=== PATIENT | male | born 1980 | race Caucasian/White ===

== ENCOUNTER 2021-08-29 11:28 | Inpatient (IN) | payer OTHER ==
[~2021-08-29] VITALS: Ht 180.3 cm; Wt 60.6 kg
[2021-08-29] MEDS ORDERED: cefTRIAXone IV Push 1 GM VIAL. IVP ONE (12:00)
--- NOTE | 2021-08-29 12:13 | PHYS DOC ---
Past Medical History Past Surgical History: No Surgical History Adult General Chief Complaint Chief Complaint: JAUNDICE HPI HPI The patient is a 40-year-old male with a longstanding history of daily alcohol abuse. Since his 20s he has been a daily drinker and he has consumed more than a pint a day for at least the last 10 years. About a week ago he decided that it was time to start cutting down on his drinking and reduced his consumption substantially. He reports that he did not suffer any substantial withdrawal symptoms but began to notice yellowing of his skin and distention of his abdomen. He reports never having had these symptoms before. With progressively worsening abdominal distention and jaundice he elected to be evaluated in the clinic for the first time since he was 12 years old today and was immediately referred to the emergency department for admission. Patient denies associated fevers, nausea or vomiting, hematemesis, hematochezia or melena, upper respiratory congestion/rhinorrhea, cough, sore throat, shortness of breath (although room air oxygen saturation is on the low side of normal), chest pain of any kind, abdominal pain of any kind, flank pain, midline back pain, dysuria, hematuria, polyuria or oliguria, changes in bowel habits. Vital signs are appropriate here and the patient is in no acute distress, ambulatory with a narrow, steady gait to his ED bed. Review of Systems Review of Systems A 12 point review of systems was completed and was negative except where noted in HPI above. Current Medications Current Medications Current Medications Medications (Trade) Dose Ordered Sig/Eveline Start Time Stop Time Status Last Admin Dose Admin Ceftriaxone Sodium (Rocephin) 1 gm 1X ONCE 08/29/21 12:00 08/29/21 12:04 DC 08/29/21 13:05 1 GM Multivit/ Folic Acid/Iron (Multivitamin ) 1 tab 1X ONCE 08/29/21 13:06 08/29/21 13:07 DC 08/29/21 13:11 1 TAB Thiamine HCl 500 mg/Dextrose 55 ml @ 102 mls/hr DAILY 08/29/21 13:00 08/29/21 13:10 102 MLS/HR Allergies Allergies Allergies Coded Allergies Type Severity Reaction Last Updated Verified No Known Drug Allergies 08/29/21 No Physical Exam Physical Exam Cachectic, chronically ill-appearing 40-year-old male appearing nontoxic and in no acute distress. Head is normocephalic and atraumatic. Neck is supple and nontender. Oropharynx is moist. There is bilateral scleral icterus. Lungs are clear to auscultation at all stations aside from mild diminishment at the bilateral bases. There is a normal S1 and S2 without rubs or gallops and capillary refill is appropriate, less than 2 seconds globally. Abdomen is distended with spider angiomata and other stigmata of chronic liver disease seen on the skin surface. There is a positive fluid wave. Distention is not tense but makes it difficult to appreciate any organomegaly underlying. Skin is warm and dry and without cyanosis, clubbing or edema. Patient is frankly jaundiced. Psychiatrically, the patient demonstrates appropriate mood and affect and is alert. Neurologically, no asterixis and no confusion; no lateralizing deficits seen and patient is alert and oriented x4. Current Patient Data Vital Signs Vital Signs Date Time Temp Pulse Resp B/P (MAP) Pulse Ox O2 Delivery O2 Flow Rate FiO2 08/29/21 12:52 118 119/83 (95) 96 Room Air 08/29/21 11:35 97.7 18 97.7 Lab Values Laboratory Tests Test 08/29/21 12:05 08/29/21 12:20 White Blood Count 17.6 x10^3/uL (4.0-11.0) H Red Blood Count 2.17 x10^6/uL (4.30-5.70) L Hemoglobin 8.4 g/dL (13.0-17.5) L Hematocrit 24.5 % (39.0-53.0) L Mean Corpuscular Volume 113 fL (79-100) H Mean Corpuscular Hemoglobin 39 pg (25-35) H Mean Corpuscular Hemoglobin Concent 34 g/dL (31-37) Red Cell Distribution Width 17.0 % (11.5-14.5) H Platelet Count 112 x10^3/uL (140-400) L Neutrophils (%) (Auto) 81 % (31-73) H Lymphocytes (%) (Auto) 11 % (24-48) L Monocytes (%) (Auto) 7 % (0-9) Eosinophils (%) (Auto) 1 % (0-3) Basophils (%) (Auto) 0 % (0-3) Neutrophils # (Auto) 14.2 x10^3/uL (1.8-7.7) H Lymphocytes # (Auto) 1.9 x10^3/uL (1.0-4.8) Monocytes # (Auto) 1.2 x10^3/uL (0.0-1.1) H Eosinophils # (Auto) 0.2 x10^3/uL (0.0-0.7) Basophils # (Auto) 0.1 x10^3/uL (0.0-0.2) Segmented Neutrophils % 80 % (35-66) H Band Neutrophils % 2 % (0-9) Lymphocytes % 10 % (24-48) L Monocytes % 5 % (0-10) Eosinophils % 1 % (0-5) Metamyelocytes % 2 % (0-0) H Toxic Granulation Slight Toxic Vacuolation Slight Platelet Estimate Decreased (ADEQUATE) Polychromasia Occasional Macrocytosis Present Target Cells Few Prothrombin Time 16.9 SEC (11.7-14.0) H Prothrombin Time INR 1.4 (0.8-1.1) H Activated Partial Thromboplast Time 45 SEC (24-38) H Sodium Level 123 mmol/L (136-145) L Potassium Level 3.7 mmol/L (3.5-5.1) Chloride Level 87 mmol/L (98-107) L Carbon Dioxide Level 21 mmol/L (21-32) Anion Gap 15 (6-14) H Blood Urea Nitrogen 24 mg/dL (8-26) Creatinine 2.0 mg/dL (0.7-1.3) H Estimated GFR (Cockcroft-Gault) 37.0 BUN/Creatinine Ratio 12 (6-20) Glucose Level 104 mg/dL (70-99) H Calcium Level 8.9 mg/dL (8.5-10.1) Total Bilirubin 11.8 mg/dL (0.2-1.0) H Direct Bilirubin 7.7 mg/dL (0.0-0.2) H Aspartate Amino Transferase (AST) 164 U/L (15-37) H Alanine Aminotransferase (ALT) 76 U/L (16-63) H Alkaline Phosphatase 115 U/L (46-116) Ammonia 28 mcmol/L (11-34) RP-Mwj-M-Type Natriuretic Peptide 312 pg/mL (0-124) H Total Protein 8.5 g/dL (6.4-8.2) H Albumin 2.0 g/dL (3.4-5.0) L Albumin/Globulin Ratio 0.3 (1.0-1.7) L Lipase 1082 U/L (73-393) H Acetaminophen Level < 2 mcg/ml (10-30) L Acetaminophen Last Dose Date Unknown Acetaminophen Last Dose Time Unknown Ethyl Alcohol Level < 10 mg/dL (0-10) Hepatitis A IgM Antibody Nonreactive (Nonreactive) Hepatitis B Surface Antigen Nonreactive (Nonreactive) Hepatitis B Core IgM Antibody Nonreactive (Nonreactive) Hepatitis C IgG Antibody Nonreactive (Nonreactive) SARS-CoV-2 Antigen (Rapid) Negative (NEGATIVE) Laboratory Tests 08/29/21 12:05 Laboratory Tests 08/29/21 12:05 EKG EKG [] Radiology/Procedures Radiology/Procedures [] Course & Med Decision Making Course & Med Decision Making 40-year-old gentleman with probable decompensated liver disease in the setting of probable alcoholic cirrhosis. Large work-up sent and dose of Rocephin given, after cultures were drawn, for SBP prophylaxis. Will be an admission. 1400: Work-up as above, with numerous derangements related to decompensated liver disease. Bringing in for further care to include GI consultation. Dr. Boyce graciously accepts. CC time 48 minutes. Dragon Disclaimer Dragon Disclaimer This electronic medical record was generated, in whole or in part, using a voice recognition dictation system. Departure Departure Impression: Primary Impression: Decompensated liver disease Additional Impressions: Alcohol abuse Renal insufficiency Disposition: ADMITTED INPATIENT Condition: GUARDED Referrals: VERÓNICA COUGHLIN MD (PCP) Problem Qualifiers TONYA WILSON MD Aug 29, 2021 12:13
[2021-08-29 12:22] LABS: BASO # 0.1 x10^3/uL (0.0-0.2); BASO % 0 % (0-3); EOS # 0.2 x10^3/uL (0.0-0.7); EOS % 1 % (0-3); HEMATOCRIT 24.5 % (39.0-53.0); HEMOGLOBIN 8.4 g/dL (13.0-17.5); LYMPH # 1.9 x10^3/uL (1.0-4.8); LYMPH % 11 % (24-48); MEAN CORPUSCULAR HEMOGLOBIN 39 pg (25-35); MEAN CORPUSCULAR HGB CONC 34 g/dL (31-37); MEAN CORPUSCULAR VOLUME 113 fL (79-100); MONO # 1.2 x10^3/uL (0.0-1.1); MONO % 7 % (0-9); NEUT # 14.2 x10^3/uL (1.8-7.7); NEUT % 81 % (31-73); PLATELET COUNT 112 x10^3/uL (140-400); RED BLOOD COUNT 2.17 x10^6/uL (4.30-5.70); WHITE BLOOD COUNT 17.6 x10^3/uL (4.0-11.0)
--- NOTE | 2021-08-29 12:26 | RAD ---
XR CHEST 1V Clinical Indication: Reason: diminished O2 saturation, decompensated liver dz Comparison: None. Findings: The cardiomediastinal silhouette is normal. There are right infrahilar and left basilar airspace opac ities. Lungs are otherwise clear. There is no pneumothorax. No pleural effusion is appreciated. No ac jena bone abnormality. IMPRESSION: Right infrahilar and left basilar airspace opacities are probably atelectasis. Electronically signed by: Keegan Brock MD (08/29/2021 12:23 PM) [id number]
[2021-08-29 12:32] LABS: PROTHROMBIN TIME PATIENT 16.9 SEC (11.7-14.0)
[2021-08-29 12:35] LABS: CALCIUM 8.9 mg/dL (8.5-10.1); POTASSIUM 3.7 mmol/L (3.5-5.1)
[2021-08-29 12:40] LABS: ACETAMIN < 2 mcg/ml (10-30); ETHANOL < 10 mg/dL (0-10)
[2021-08-29 12:41] LABS: ALBUMIN/GLOBULIN RATIO 0.3 (1.0-1.7); TOTAL BILIRUBIN 11.8 mg/dL (0.2-1.0); TOTAL PROTEIN 8.5 g/dL (6.4-8.2)
[2021-08-29 12:46] LABS: % BANDS 2 % (0-9); % EOS 1 % (0-5); % LYMPHS 10 % (24-48); % METAS 2 % (0-0); % MONOS 5 % (0-10); % SEGS 80 % (35-66)
[2021-08-29 12:47] LABS: PLT ESTIMATE DECREASED (ADEQUATE)
[2021-08-29 12:48] LABS: POLYCHROMASIA OCCASIONAL
[2021-08-29 12:49] LABS: TARGET CELLS FEW
[2021-08-29 12:50] LABS: TOXIC GRANULATION SLIGHT; TOXIC VACUOLATION SLIGHT
[2021-08-29] MEDS ORDERED: PRENATAL MULTIVITAMIN TABLET. PO ONE (13:06)
[2021-08-29] MEDS: THIAMINE INJ 500 MG in IV DEXTROSE 5% 50 ML IV SCH (13:10)
--- NOTE | 2021-08-29 13:10 | RAD ---
Examination: CT of the abdomen pelvis without contrast HISTORY: History of jaundice, ascites, elevated labs COMPARISON: None TECHNIQUE: Axial CT images of the abdomen pelvis without contrast. Coronal and sagittal reformats are performed Exposure: One or more of the following individualized dose reduction techniques were utilized for thi s examination: 1. Automated exposure control 2. Adjustment of the mA and/or kV according to patient size 3. Use of iterative reconstruction technique Findings: Focal linear airspace opacity right lower lobe of the lung likely pneumonia or atelectasis. No eviden ce of free air identified in the abdomen Mild nodular appearance of the liver likely cirrhotic changes. Prominent appearing paraumbilical vein The spleen, adrenals grossly appears unremarkable Gallbladder is mildly distended. The stomach is mildly distended. The visualized pancreas grossly appears unremarkable. The small ladonna l is nondilated. Feces and gas noted in the colon Mild thickened appearance of the wall of the colon.. Large ascites identified. The bilateral kidneys enhance symmetrically. Small 3 mm calculus left kidney No evidence of hydronephrosis Urinary bladder is mildly distended. Mild degenerative changes thoracolumbar spine. IMPRESSION: 1. Mild nodular appearance of the liver likely cirrhotic changes. Prominent appearing paraumbilical vein could be due to portal hypertension. 2. Large ascites. 3. Mild thickened appearance of the wall of the colon could be due to nondistention or mild colitis. 4. 3 mm calculus left kidney. 5. Focal linear airspace opacity right lower lobe of the lung likely pneumonia or atelectasis. Follo w-up to resolution. Electronically signed by: Jose Santiago MD (08/29/2021 1:07 PM) [id number]
--- NOTE | 2021-08-29 14:39 | RAD ---
US ABDOMEN LIMITED History: Reason: LFT derangements, pancreatitis / Spl. Instructions: / History: Comparison: CT August 29, 2021. Technique: Transabdominal ultrasound images are obtained of the right upper quadrant. Findings: Liver is heterogeneous nodular in echogenicity. Right hepatic lobe measures 15.3 cm. Portal flow is hepatopedal. Large upper abdominal ascites. Diffuse gallbladder sludge. No gallbladder wall thickening. Common bile duct not identified due to overlying structures. Visualized pancreas unremarkable. The right kidney measures 10.6 x 5.5 x 4.8 cm. No hydronephrosis. Aorta and IVC not well seen due to overlying structures. IMPRESSION: 1. Gallbladder sludge. 2. Hepatic cirrhosis with large abdominal ascites. Electronically signed by: Amari Puckett DO (08/29/2021 2:36 PM) [id number]
[2021-08-29 15:45] VITALS: BP 126/84
[2021-08-29] MEDS ORDERED: ONDANSETRON PF 4 MG/2 ML VIAL. IVP PRN (16:45)
[2021-08-29] MEDS ORDERED: IBUP-1027 PO (17:26)
[2021-08-29] MEDS ORDERED: diphenhydrAMINE 50 MG/ML VIAL IVP PRN (18:00)
[2021-08-29] MEDS ORDERED: cloNIDine HCL 0.1 MG TABLET PO PRN (18:00)
[2021-08-29] MEDS ORDERED: HALOPERIDOL LACTATE 5 MG/ML VIAL. IVP PRN (18:00)
[2021-08-29] MEDS: IV NORMAL SALINE 1000ML BAG 1,000 ML IV SCH (18:21)
[2021-08-29 19:54] VITALS: BP 117/78
[2021-08-29 23:45] VITALS: BP 117/76
[2021-08-30] VITALS (16 sets, daily range): BP systolic 104–132; BP diastolic 64–87
[2021-08-30 08:20] LABS: BASO % 0 % (0-3); EOS # 0.3 x10^3/uL (0.0-0.7); EOS % 2 % (0-3); LYMPH # 2.4 x10^3/uL (1.0-4.8); LYMPH % 17 % (24-48); MEAN CORPUSCULAR HEMOGLOBIN 39 pg (25-35); MEAN CORPUSCULAR HGB CONC 35 g/dL (31-37); MEAN CORPUSCULAR VOLUME 113 fL (79-100); MONO # 1.1 x10^3/uL (0.0-1.1); MONO % 8 % (0-9); NEUT # 10.1 x10^3/uL (1.8-7.7); NEUT % 73 % (31-73); PLATELET COUNT 86 x10^3/uL (140-400); RED BLOOD COUNT 1.63 x10^6/uL (4.30-5.70); RED CELL DISTRIBUTION WIDTH 17.4 % (11.5-14.5)
[2021-08-30 08:25] LABS: HEMATOCRIT 18.4 % (39.0-53.0); HEMOGLOBIN 6.4 g/dL (13.0-17.5)
[2021-08-30 08:38] LABS: ALBUMIN 1.5 g/dL (3.4-5.0); ALBUMIN/GLOBULIN RATIO 0.3 (1.0-1.7); CALCIUM 8.2 mg/dL (8.5-10.1); CREATININE 1.7 mg/dL (0.7-1.3); GFR 44.6; TOTAL BILIRUBIN 8.5 mg/dL (0.2-1.0); TOTAL PROTEIN 6.8 g/dL (6.4-8.2)
[2021-08-30 08:45] LABS: POTASSIUM 3.5 mmol/L (3.5-5.1)
--- NOTE | 2021-08-30 09:02 | PDOC ---
Provider Note Date of Service: DATE: 08/30/21 TIME: 09:02 Provider Note dictated Justifications for Admission Other Justification KIP HAQUE MD Aug 30, 2021 09:02
[2021-08-30] MEDS: THIAMINE INJ 500 MG in IV DEXTROSE 5% 50 ML IV SCH (09:24)
--- NOTE | 2021-08-30 10:05 | PDOC2 ---
GI CONSULT Date of Service: DATE: 08/30/21 TIME: 10:05 Reason For Consult: decompensated liver disease HPI: HPI: 40 y/o male admitted through ER. H/o heavy alcohol use, last drink Thursday08/26/21. Gives somewhat wandering history - indicates issues w/ n/v after drinking so cut back, had some auditory and visual hallucination, then developed yellowing of skin and eyes and abdominal distention. At one point during retc rasheed heard a "pop" - thinks broke a rib but feels it has healed. Denies reflux/heartburn, dysphagia, hematemesis, hematochezia, melena, diarrhea, and constipation. Has lost weight and has some abdominal discomfort. No previous EGD or colonoscopy. No GB, liver, pancreas, or PUD history. Takes ibuprofen PRN. 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 Just got health insurance and established care w/ new PCP. PMH: PMH: rib fractures FH: Family History: No pertinent hx (denies liver disease, GI cancers) Social History: Smoke: <1 pack per day ALCOHOL: heavy Drugs: Marijuana ROS: GEN: Denies fevers, chills, sweats HEENT: Denies blurred vision, sore throat CV: Denies chest pain RESP: Denies shortness of air, cough GI: Per HPI : Denies hematuria, dysuria ENDO: +wt loss NEURO: +hallucination (not now) MSK: +weakness SKIN: +jaundice Vitals: Vitals: Vital Signs Date Time Temp Pulse Resp B/P (MAP) Pulse Ox O2 Delivery O2 Flow Rate FiO2 08/30/21 08:00 Room Air 08/30/21 07:00 97.8 116 16 119/77 (91) 90 97.8 Labs: Labs: Laboratory Tests Test 08/29/21 12:05 08/29/21 12:20 08/30/21 07:25 08/30/21 07:35 White Blood Count 17.6 x10^3/uL (4.0-11.0) 14.0 x10^3/uL (4.0-11.0) Red Blood Count 2.17 x10^6/uL (4.30-5.70) 1.63 x10^6/uL (4.30-5.70) Hemoglobin 8.4 g/dL (13.0-17.5) 6.4 g/dL (13.0-17.5) Hematocrit 24.5 % (39.0-53.0) 18.4 % (39.0-53.0) Mean Corpuscular Volume 113 fL (79-100) 113 fL (79-100) Mean Corpuscular Hemoglobin 39 pg (25-35) 39 pg (25-35) Mean Corpuscular Hemoglobin Concent 34 g/dL (31-37) 35 g/dL (31-37) Red Cell Distribution Width 17.0 % (11.5-14.5) 17.4 % (11.5-14.5) Platelet Count 112 x10^3/uL (140-400) 86 x10^3/uL (140-400) Neutrophils (%) (Auto) 81 % (31-73) 73 % (31-73) Lymphocytes (%) (Auto) 11 % (24-48) 17 % (24-48) Monocytes (%) (Auto) 7 % (0-9) 8 % (0-9) Eosinophils (%) (Auto) 1 % (0-3) 2 % (0-3) Basophils (%) (Auto) 0 % (0-3) 0 % (0-3) Neutrophils # (Auto) 14.2 x10^3/uL (1.8-7.7) 10.1 x10^3/uL (1.8-7.7) Lymphocytes # (Auto) 1.9 x10^3/uL (1.0-4.8) 2.4 x10^3/uL (1.0-4.8) Monocytes # (Auto) 1.2 x10^3/uL (0.0-1.1) 1.1 x10^3/uL (0.0-1.1) Eosinophils # (Auto) 0.2 x10^3/uL (0.0-0.7) 0.3 x10^3/uL (0.0-0.7) Basophils # (Auto) 0.1 x10^3/uL (0.0-0.2) 0.0 x10^3/uL (0.0-0.2) Segmented Neutrophils % 80 % (35-66) Band Neutrophils % 2 % (0-9) Lymphocytes % 10 % (24-48) Monocytes % 5 % (0-10) Eosinophils % 1 % (0-5) Metamyelocytes % 2 % (0-0) Toxic Granulation Slight Toxic Vacuolation Slight Platelet Estimate Decreased (ADEQUATE) Polychromasia Occasional Macrocytosis Present Target Cells Few Prothrombin Time 16.9 SEC (11.7-14.0) Prothromb Time International Ratio 1.4 (0.8-1.1) Activated Partial Thromboplast Time 45 SEC (24-38) Sodium Level 123 mmol/L (136-145) 126 mmol/L (136-145) Potassium Level 3.7 mmol/L (3.5-5.1) 3.5 mmol/L (3.5-5.1) Chloride Level 87 mmol/L (98-107) 93 mmol/L (98-107) Carbon Dioxide Level 21 mmol/L (21-32) 24 mmol/L (21-32) Anion Gap 15 (6-14) 9 (6-14) Blood Urea Nitrogen 24 mg/dL (8-26) 24 mg/dL (8-26) Creatinine 2.0 mg/dL (0.7-1.3) 1.7 mg/dL (0.7-1.3) Estimated GFR (Cockcroft-Gault) 37.0 44.6 BUN/Creatinine Ratio 12 (6-20) 14 (6-20) Glucose Level 104 mg/dL (70-99) 70 mg/dL (70-99) Calcium Level 8.9 mg/dL (8.5-10.1) 8.2 mg/dL (8.5-10.1) Total Bilirubin 11.8 mg/dL (0.2-1.0) 8.5 mg/dL (0.2-1.0) Direct Bilirubin 7.7 mg/dL (0.0-0.2) Aspartate Amino Transf (AST/SGOT) 164 U/L (15-37) 130 U/L (15-37) Alanine Aminotransferase (ALT/SGPT) 76 U/L (16-63) 54 U/L (16-63) Alkaline Phosphatase 115 U/L (46-116) 86 U/L (46-116) Ammonia 28 mcmol/L (11-34) OQ-Gjj-B-Type Natriuretic Peptide 312 pg/mL (0-124) Total Protein 8.5 g/dL (6.4-8.2) 6.8 g/dL (6.4-8.2) Albumin 2.0 g/dL (3.4-5.0) 1.5 g/dL (3.4-5.0) Albumin/Globulin Ratio 0.3 (1.0-1.7) 0.3 (1.0-1.7) Lipase 1082 U/L (73-393) Acetaminophen Level < 2 mcg/ml (10-30) Acetaminophen Last Dose Date Unknown Acetaminophen Last Dose Time Unknown Ethyl Alcohol Level < 10 mg/dL (0-10) Hepatitis A IgM Antibody Nonreactive (Nonreactive) Hepatitis B Surface Antigen Nonreactive (Nonreactive) Hepatitis B Core IgM Antibody Nonreactive (Nonreactive) Hepatitis C IgG Antibody Nonreactive (Nonreactive) SARS-CoV-2 RNA (NELIDA) Negative (Negative) SARS-CoV-2 Antigen (Rapid) Negative (NEGATIVE) Allergies: Coded Allergies: No Known Drug Allergies (Unverified , 08/29/21) Medications: Current Medications Medications (Trade) Dose Ordered Sig/Eveline Route PRN Reason Start Time Stop Time Status Last Admin Dose Admin Ceftriaxone Sodium (Rocephin) 1 gm 1X ONCE IVP 08/29/21 12:00 08/29/21 12:04 DC 08/29/21 13:05 Thiamine HCl 500 mg/Dextrose 55 ml @ 102 mls/hr DAILY IV 08/29/21 13:00 08/30/21 09:24 Multivit/ Folic Acid/Iron (Multivitamin ) 1 tab 1X ONCE PO 08/29/21 13:06 08/29/21 13:07 DC 08/29/21 13:11 Sodium Chloride 1,000 ml @ 50 mls/hr Q20H IV 08/29/21 18:00 08/29/21 18:21 Imaging: Imaging: CT A/P Findings: Focal linear airspace opacity right lower lobe of the lung likely pneumonia or atelectasis. No evidence of free air identified in the abdomen Mild nodular appearance of the liver likely cirrhotic changes. Prominent appearing paraumbilical veinThe spleen, adrenals grossly appears unremarkable Gallbladder is mildly distended. The stomach is mildly distended. The visualized pancreas grossly appears unremarkable. The small bowel is nondilated. Feces and gas noted in the colon Mild thickened appearance of the wall of the colon.. Large ascites identified. The bilateral kidneys enhance symmetrically. Small 3 mm calculus left kidney No evidence of hydronephrosis Urinary bladder is mildly distended. Mild degenerative changes thoracolumbar spine. IMPRESSION: 1. Mild nodular appearance of the liver likely cirrhotic changes. Prominent appearing paraumbilical vein could be due to portal hypertension. 2. Large ascites. 3. Mild thickened appearance of the wall of the colon could be due to nondistention or mild colitis. 4. 3 mm calculus left kidney. 5. Focal linear airspace opacity right lower lobe of the lung likely pneumonia or atelectasis. Follow-up to resolution. CXR IMPRESSION: Right infrahilar and left basilar airspace opacities are probably atelectasis. RUQ US Findings: Liver is heterogeneous nodular in echogenicity. Right hepatic lobe measures 15.3 cm. Portal flow is hepatopedal. Large upper abdominal ascites. Diffuse gallbladder sludge. No gallbladder wall thickening. Common bile duct not identified due to overlying structures. Visualized pancreas unremarkable. The right kidney measures 10.6 x 5.5 x 4.8 cm. No hydronephrosis. Aorta and IVC not well seen due to overlying structures. IMPRESSION: 1. Gallbladder sludge. 2. Hepatic cirrhosis with large abdominal ascites. ADDENDUM #1 Addendum: Correction: Flow within the portal vein is reversed. No occlusion. PE: GEN: appears older than stated age HEENT: Atraumatic, +sclearae icteric, poor dentition LUNGS: CTAB anteriorly HEART: tachycardic ABD: distended, soft, non-tender EXTREMITY: No edema SKIN: +jaundice +tattoo left shoulder NEURO/PSYCH: A & O 3 - fuzzy on some details, odd affect A/P: A/P: Jaundice, ascites Leukocytosis, macroctyic anemia, thrombocytopenia, mild coagulopathy, hyponatremia, RADHA, hyperbilirubinemia and elevated AST, elevated lipase Recent n/v, hallucinations, weight loss CRC screen - average risk -- Suspect alcoholic hepatitis/cirrhosis. Viral Hep panel negative. Transfusion and B12 ordered, add iron for completeness. Will ask for paracentesis and fluid studies. Okay to try clears, ADAT. Start acid-medical device assembler. Withdrawal precautions per primary. Discussed quitting alcohol completely w/ pt. GHAZAL MCWILLIAMS Aug 30, 2021 10:05
--- NOTE | 2021-08-30 10:52 | NUR ---
SW following. Discussed with RN, pt from home, room air, cardiac diet, COVID-19 negative. Pt jaundice and in liver failure per RN. GI following. RN advised no SW needs at this time. SW will continue to follow.
[2021-08-30] MEDS: PANTOPRAZOLE 40 MG TABLET.DR. PO SCH (11:21)
--- NOTE | 2021-08-30 12:10 | HP ---
DATE OF SERVICE: 08/30/2021 ADMIT DATE: 08/29/2021 CHIEF COMPLAINT: . HISTORY OF PRESENT ILLNESS: The patient has been seen by Dr. Sweet with severe jaundice, weakness, abdominal distention and general fatigue. He has a long history of alcohol abuse and has been seen by a doctor who admitted for anemia as well as above-mentioned factors. He was found to be hyponatremic in the ER as well. PAST HISTORY: No meds, no allergies, no medical history. SOCIAL HISTORY: He has cut down on alcohol and is unable to quantitate that, does not know if he smokes or not. He is employed. He is single. REVIEW OF SYSTEMS: Unremarkable. OBJECTIVE: ENT: Very poor dentition. He has got pale sclera ____ icteric. NECK: No masses, nodes or bruits. JVD present. CV: Regular rate, tachycardia and no murmur. ABDOMEN: Distended with fluid wave consistent with ascites. EXTREMITIES: Poor muscle mass. No joint or skin lesions. There is mild edema of the ankles and very poor muscle mass. NEUROLOGIC: Mild tremors, otherwise unremarkable. One to two beats of asterixis is noted. 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 There is jaundice. This is likely secondary to chronic alcohol abuse. He also appears to be anemic perhaps from multifactorial reasons ____ as well. Hyponatremia is present as well. PLAN: IV saline, likely will need paracentesis for diagnostic reasons and comfort. We will transfuse 1 unit of packed cells. Silent care and alcohol withdrawal too. KEYUR/MATT/MARCIO STAHL: Caro TID: [id number]
[2021-08-30] MEDS ORDERED: ALBUMIN HUMAN 25% 100 ML IV ONE ×3 (13:06→13:15)
[2021-08-30 13:29] LABS: BF CLARITY CLEAR; BF COLOR YELLOW; BF SOURCE ASCITES
[2021-08-30 13:30] LABS: BF MON % 76 %; BF PMN % 24 %; BF RBC COUNT 56 /cmm (Not Established); BF WBC COUNT 59 /cmm (Not Established)
--- NOTE | 2021-08-30 15:08 | RAD ---
Ultrasound-guided paracentesis. 08/30/2021 3:05 PM Indication: Reason: new ascites - diagnostic and therapeutic Discussion: The risks and benefits of the procedure including but not limited to bleeding, hypotensio n, and infection were discussed the patient. Informed consent was obtained. Ultrasound evaluation was performed demonstrating ascites, with the largest pocket and the right lower quadrant. The right low er quadrant was prepped and draped in sterile fashion. 1% lidocaine without epinephrine was administe red for local anesthesia. Under direct ultrasound guidance a 5 Vietnamese Yueh needle was advanced into t he peritoneal space. Serous fluid was aspirated. The catheter was connected to suction and approximat lester 7 liters of fluid was removed. The catheter was then removed and manual pressure was held to ach ieve hemostasis. A sterile dressing was applied. Impression: Ultrasound-guided paracentesis with removal of 7 L of ascites Electronically signed by: Landry Mackenzie MD (08/30/2021 3:05 PM) [id number]
[2021-08-31] MEDS: IV NORMAL SALINE 1000ML BAG 1,000 ML IV SCH ×2 (00:12→13:36)
[2021-08-31 03:00] VITALS: BP 110/70
[2021-08-31 07:00] VITALS: BP 107/67
[2021-08-31 08:04] LABS: HEMATOCRIT 21.8 % (39.0-53.0); HEMOGLOBIN 7.6 g/dL (13.0-17.5); RED BLOOD COUNT 2.03 x10^6/uL (4.30-5.70); RED CELL DISTRIBUTION WIDTH 21.9 % (11.5-14.5); WHITE BLOOD COUNT 9.4 x10^3/uL (4.0-11.0)
[2021-08-31 08:17] LABS: CALCIUM 7.9 mg/dL (8.5-10.1); CREATININE 1.4 mg/dL (0.7-1.3); GFR 55.8; POTASSIUM 3.2 mmol/L (3.5-5.1)
[2021-08-31 08:48] LABS: DIRECT BILIRUBIN 5.2 mg/dL (0.0-0.2); TOTAL BILIRUBIN 9.2 mg/dL (0.2-1.0); TOTAL PROTEIN 6.3 g/dL (6.4-8.2)
--- NOTE | 2021-08-31 10:13 | PDOC ---
Provider Note Date of Service: DATE: 08/31/21 TIME: 10:11 Provider Note feels better after para, bili same, sono no obstruction dseen- hb > 7, will follow B12 ok so high mcv is etoh tox- Na+ still low continue iv saline slowly re ascites, rest same Justifications for Admission Other Justification KIP HAQUE MD Aug 31, 2021 10:13
[2021-08-31] MEDS: THIAMINE 100 MG TABLET. PO SCH (10:23)
[2021-08-31] MEDS: PANTOPRAZOLE 40 MG TABLET.DR. PO SCH (10:23)
[2021-08-31 11:00] VITALS: BP 152/85
[2021-08-31] MEDS: POTASSIUM CHLORIDE 10 MEQ TABLET.ER. PO SCH ×2 (13:35→17:13)
[2021-08-31 15:00] VITALS: BP 115/78
[2021-08-31] MEDS: MULTIVITAMIN with MINERAL TABLET. PO SCH (17:13)
[2021-08-31 19:00] VITALS: BP 116/68
[2021-08-31 23:18] VITALS: BP 112/63
[2021-09-01 03:21] VITALS: BP 118/70
[2021-09-01 07:00] VITALS: BP 112/75
[2021-09-01 07:47] LABS: CALCIUM 7.4 mg/dL (8.5-10.1); CREATININE 1.5 mg/dL (0.7-1.3); GFR 51.6; POTASSIUM 3.6 mmol/L (3.5-5.1)
[2021-09-01 08:09] LABS: HEMATOCRIT 22.5 % (39.0-53.0); HEMOGLOBIN 7.9 g/dL (13.0-17.5); RED BLOOD COUNT 2.08 x10^6/uL (4.30-5.70); RED CELL DISTRIBUTION WIDTH 22.3 % (11.5-14.5); WHITE BLOOD COUNT 10.6 x10^3/uL (4.0-11.0)
[2021-09-01] MEDS: POTASSIUM CHLORIDE 10 MEQ TABLET.ER. PO SCH ×3 (10:00→17:26)
[2021-09-01] MEDS: THIAMINE 100 MG TABLET. PO SCH (10:00)
[2021-09-01] MEDS: PANTOPRAZOLE 40 MG TABLET.DR. PO SCH (10:01)
[2021-09-01] MEDS: MULTIVITAMIN with MINERAL TABLET. PO SCH (10:01)
[2021-09-01] MEDS: IV NORMAL SALINE 1000ML BAG 1,000 ML IV SCH (10:08)
--- NOTE | 2021-09-01 10:40 | PDOC ---
Provider Note Date of Service: DATE: 09/01/21 TIME: 10:38 Provider Note vss, no more pain re diet advance- hb same as are platelts- Na+ 132 now, will dc iv saline and assesss 09/02 Justifications for Admission Other Justification KIP HAQUE MD Sep 01, 2021 10:39
[2021-09-01 11:00] VITALS: BP 122/84
[2021-09-01 15:00] VITALS: BP 113/67
[2021-09-01 19:00] VITALS: BP 122/73
[2021-09-01 23:00] VITALS: BP 119/79
[2021-09-02 03:00] VITALS: BP 110/75
[2021-09-02 07:00] VITALS: BP 121/77
[2021-09-02] MEDS: THIAMINE 100 MG TABLET. PO SCH (08:02)
[2021-09-02] MEDS: PANTOPRAZOLE 40 MG TABLET.DR. PO SCH (08:02)
[2021-09-02] MEDS: POTASSIUM CHLORIDE 10 MEQ TABLET.ER. PO SCH ×3 (08:02→17:30)
[2021-09-02 08:21] LABS: CALCIUM 7.8 mg/dL (8.5-10.1); CREATININE 1.3 mg/dL (0.7-1.3); GFR 60.8; POTASSIUM 3.4 mmol/L (3.5-5.1)
--- NOTE | 2021-09-02 08:29 | PDOC ---
Provider Note Date of Service: DATE: 09/02/21 TIME: 08:28 Provider Note status same, Na= down to 126 off iv so resume iv saline- follow same, rest of meds same Justifications for Admission Other Justification KIP HAQUE MD Sep 02, 2021 08:29
--- NOTE | 2021-09-02 10:04 | PDOC ---
Date of Service: DATE: 09/02/21 TIME: 09:54 Subjective: Subjective: Feels much better after paracentesis, might have a little recurrence of ascites but is comfortable. Tolerating diet. Significant other present and would like to know what degree of liver failure he has. Objective: Objective: B12 normal, iron sat not performed. Vital Signs: Vital Signs Date Time Temp Pulse Resp B/P (MAP) Pulse Ox O2 Delivery O2 Flow Rate FiO2 09/02/21 07:00 98.2 106 16 121/77 (92) 92 Room Air 98.2 Labs: Laboratory Tests Test 09/02/21 06:00 Sodium Level 126 mmol/L Potassium Level 3.4 mmol/L Chloride Level 97 mmol/L Carbon Dioxide Level 20 mmol/L Anion Gap 9 Blood Urea Nitrogen 14 mg/dL Creatinine 1.3 mg/dL Estimated GFR (Cockcroft-Gault) 60.8 Glucose Level 109 mg/dL Calcium Level 7.8 mg/dL ORDERED: ROSIE/AEROBIC CUL COMMENTS: Specimen Description: ascites GRAM STAIN-AER ROSIE Final PMNS (WBCS): NONE SEEN SQUAMOUS EPI CELL: NOT APPLICABLE NO ORGANISMS SEEN NO ORGANISMS SEEN CULTURE ANAEROBIC/AEROBIC Preliminary NO GROWTH ON 08/31/21 at 1128 NO GROWTH ON 09/01/21 at 1048 BLOOD CULTURE Preliminary NO GROWTH AFTER 3 DAYS Imagin08/30/21 Impression: Ultrasound-guided paracentesis with removal of 7 L of ascites PE: GEN: NAD - breakfast tray 100% consumed LUNGS: CTAB HEART: mildly tachycardic ABD: soft, probably some ascites but improved EXTREMITY: No edema SKIN: jaundice improved NEURO/PSYCH: A & O 3 A/P: Alcoholic cirrhosis - jaundice improved, s/p paracentesis 7L (fluid negative) Macrocytic anemia (normal B12), thrombocytopenia RADHA (resolved), hyponatremia - per primary Elevated lipase - better, unremarkable pancreas on imaging, GB sludge on US, no abd pain COVID negative -- D/w supportive fiance - assisted continue abstinence and follow-up w/ transplant center. Continue support, salt-restriction, paracentesis PRN. Justicifation of Admission Dx: Justifications for Admission: Justification of Admission Dx: Yes GHAZAL MCWILLIAMS Sep 02, 2021 10:04
--- NOTE | 2021-09-02 10:42 | NUR ---
SW following. Chart reviewed, pt from home, room air, cardiac diet, COVID-19 negative. GI following. No SW needs at this time, anticipate discharge in the next 24 hours or so. SW will continue to follow.
[2021-09-02 10:59] VITALS: BP 127/81
[2021-09-02] MEDS: MULTIVITAMIN with MINERAL TABLET. PO SCH (12:09)
[2021-09-02] MEDS: IV DEXTROSE 5% - 0.9 % NACL 1,000 ML IV SCH (13:15)
[2021-09-02 15:00] VITALS: BP 119/75
--- NOTE | 2021-09-02 17:07 | PATHOLOGY ---
Note [facility] Accession Number: [id number] TESTS RESULT FLAG UNITS REF RANGE LAB Clinician Provided Cytology Information No. of containers..01 Other (Miscellaneous) Source: 01 ASCITES DIAGNOSIS: 02 ASCITES NEGATIVE FOR MALIGNANT CELLS. MESOTHELIAL CELLS ARE PRESENT. THIS EVALUATION INCLUDES EXAMINATION OF A CELL A BLOCK. Signed out by: 02 Von Heredia MD, Pathologist NPI- [id number] Performed by: Pari Reza Sound Assistant ([facility]) Gross description: 01 30ML, YELLOW, HAZY /LCS 08/31/2021 0024 Local FLAG LEGEND: L-Low Normal,H-High Normal,LL-Alert Low,HH-Alert High <-Panic Low,>-Panic High,A-Abnormal,AA-Critical Abnormal Performed at: [address] [place] [address] Erlin Gonzales MD, 02 [facility] [address] [place] [address] Von Heredia MD, Specimen Comment: A courtesy copy of this report has been sent to [phone], [phone] Specimen Comment: [id number] Specimen Comment: Report sent to / DR PASTOR Specimen Comment: A duplicate report has been generated due to demographic updates. Performed at: [address] [place] [address] [facility] [address], [place], [place] [id number] MD Erlin Gonzales MD Phone: [phone]
[2021-09-02 19:00] VITALS: BP 126/73
[2021-09-02 23:05] VITALS: BP 133/89
[2021-09-03] VITALS (8 sets, daily range): BP systolic 102–132; BP diastolic 70–84
[2021-09-03 07:55] LABS: HEMATOCRIT 22.2 % (39.0-53.0); HEMOGLOBIN 7.8 g/dL (13.0-17.5); RED BLOOD COUNT 2.02 x10^6/uL (4.30-5.70); RED CELL DISTRIBUTION WIDTH 22.7 % (11.5-14.5); WHITE BLOOD COUNT 10.6 x10^3/uL (4.0-11.0)
[2021-09-03 08:13] LABS: CALCIUM 7.6 mg/dL (8.5-10.1); CREATININE 1.4 mg/dL (0.7-1.3); GFR 55.8; POTASSIUM 3.9 mmol/L (3.5-5.1)
--- NOTE | 2021-09-03 08:34 | PDOC ---
Provider Note Date of Service: DATE: 09/03/21 TIME: 08:32 Provider Note status same, hb stable, Na+ 127- will add low dose spirono now, cont iv saline another day, dc tomorrow if lab stable Justifications for Admission Other Justification KIP HAQUE MD Sep 03, 2021 08:34
[2021-09-03] MEDS: MULTIVITAMIN with MINERAL TABLET. PO SCH (08:59)
[2021-09-03] MEDS: POTASSIUM CHLORIDE 10 MEQ TABLET.ER. PO SCH ×3 (08:59→17:36)
[2021-09-03] MEDS: PANTOPRAZOLE 40 MG TABLET.DR. PO SCH (09:00)
[2021-09-03] MEDS: SPIRONOLACTONE 25 MG TABLET PO SCH (09:04)
[2021-09-03] MEDS: IV DEXTROSE 5% - 0.9 % NACL 1,000 ML IV SCH (09:06)
--- NOTE | 2021-09-03 09:53 | PDOC ---
Date of Service: DATE: 09/03/21 TIME: 09:48 Subjective: Subjective: Nurse present - pt feels abdomen more distended/ascites recurring, would like to consider repeating paracentesis. Hasn't had the change to eat breakfast yet. Objective: Vital Signs: Vital Signs Date Time Temp Pulse Resp B/P (MAP) Pulse Ox O2 Delivery O2 Flow Rate FiO2 09/03/21 07:40 Room Air 09/03/21 07:00 98.2 113 14 123/81 (95) 94 98.2 Labs: Laboratory Tests Test 09/03/21 07:25 White Blood Count 10.6 x10^3/uL Red Blood Count 2.02 x10^6/uL Hemoglobin 7.8 g/dL Hematocrit 22.2 % Mean Corpuscular Volume 110 fL Mean Corpuscular Hemoglobin 38 pg Mean Corpuscular Hemoglobin Concent 35 g/dL Red Cell Distribution Width 22.7 % Platelet Count 85 x10^3/uL Sodium Level 127 mmol/L Potassium Level 3.9 mmol/L Chloride Level 99 mmol/L Carbon Dioxide Level 20 mmol/L Anion Gap 8 Blood Urea Nitrogen 11 mg/dL Creatinine 1.4 mg/dL Estimated GFR (Cockcroft-Gault) 55.8 Glucose Level 127 mg/dL Calcium Level 7.6 mg/dL PE: GEN: NAD LUNGS: CTAB HEART: mildly tachycardic ABD: more distended, non-tender NEURO/PSYCH: A & O 3 A/P: Alcoholic cirrhosis/hepatitis, ascites s/p paracentesis 08/30/21 Macrocytic anemia, thrombocytopenia - stable RADHA, hyponatremia COVID negative -- ?interval paracentesis prior to DC - recheck US for ascites, also interval INR Started on spironolactone today, continue salt-restriction and avoidance of alcohol. Justicifation of Admission Dx: Justifications for Admission: Justification of Admission Dx: Yes GHAZAL MCWILLIAMS Sep 03, 2021 09:53
--- NOTE | 2021-09-03 10:00 | NUR ---
Pt to IR for paracentesis by bed.
[2021-09-03 10:44] LABS: PROTHROMBIN TIME PATIENT 18.7 SEC (11.7-14.0)
[2021-09-03] MEDS ORDERED: ALBUMIN HUMAN 25% 50 ML IV ONE (11:00)
[2021-09-03] MEDS ORDERED: ALBUMIN HUMAN 25% 100 ML IV ONE (11:00)
--- NOTE | 2021-09-03 11:11 | RAD ---
Ultrasound-guided paracentesis. 09/03/2021 11:08 AM Indication: Reason: recurrent ascites Discussion: The risks and benefits of the procedure including but not limited to bleeding, hypotensio n, and infection were discussed the patient. Informed consent was obtained. Ultrasound evaluation was performed demonstrating ascites, with the largest pocket and the right lower quadrant. The right low er quadrant was prepped and draped in sterile fashion. 1% lidocaine without epinephrine was administe red for local anesthesia. Under direct ultrasound guidance a 5 Uzbek Yueh needle was advanced into t he peritoneal space. Serous fluid was aspirated. The catheter was connected to suction and approximat lester 6.2 liters of fluid was removed. The catheter was then removed and manual pressure was held to a chieve hemostasis. A sterile dressing was applied. Impression: Ultrasound-guided paracentesis with removal of 6.2 L of ascites Electronically signed by: Landry Mackenzie MD (09/03/2021 11:09 AM) [id number]
--- NOTE | 2021-09-03 11:30 | NUR ---
Returned from IR to room by bed. Dressing d/i at site of paracentesis site and also notice bruising around site. No c/o at this time. Girlfriend at bedside. Continue to monitor.
[2021-09-04 03:00] VITALS: BP 110/73
[2021-09-04] MEDS: IV DEXTROSE 5% - 0.9 % NACL 1,000 ML IV SCH (05:47)
[2021-09-04 07:30] LABS: CALCIUM 7.7 mg/dL (8.5-10.1); CREATININE 1.2 mg/dL (0.7-1.3); GFR 66.7; POTASSIUM 4.5 mmol/L (3.5-5.1)
[2021-09-04 07:59] VITALS: BP 124/78
[2021-09-04] MEDS: MULTIVITAMIN with MINERAL TABLET. PO SCH (08:27)
[2021-09-04] MEDS: SPIRONOLACTONE 25 MG TABLET PO SCH (08:28)
[2021-09-04] MEDS: PANTOPRAZOLE 40 MG TABLET.DR. PO SCH (08:28)
--- NOTE | 2021-09-04 08:39 | PDOC ---
Provider Note Date of Service: DATE: 09/04/21 TIME: 08:37 Provider Note [id number] Justifications for Admission Other Justification KIP HAQUE MD Sep 04, 2021 08:39
--- NOTE | 2021-09-04 09:42 | PDOC ---
Date of Service: DATE: 09/04/21 TIME: 09:39 Subjective: Subjective: Much better after second paracentesis, says gets to leave today and f/u w/ Dr. Sweet in 1 week. Objective: Vital Signs: Vital Signs Date Time Temp Pulse Resp B/P (MAP) Pulse Ox O2 Delivery O2 Flow Rate FiO2 09/04/21 07:59 98.9 109 124/78 (93) 95 98.9 09/04/21 07:48 Room Air 09/04/21 03:00 20 Labs: Laboratory Tests Test 09/03/21 09:55 09/04/21 04:35 Prothrombin Time 18.7 SEC Prothromb Time International Ratio 1.6 Sodium Level 131 mmol/L Potassium Level 4.5 mmol/L Chloride Level 103 mmol/L Carbon Dioxide Level 18 mmol/L Anion Gap 10 Blood Urea Nitrogen 10 mg/dL Creatinine 1.2 mg/dL Estimated GFR (Cockcroft-Gault) 66.7 Glucose Level 105 mg/dL Calcium Level 7.7 mg/dL Source: 01 ASCITES DIAGNOSIS: 02 ASCITES NEGATIVE FOR MALIGNANT CELLS. MESOTHELIAL CELLS ARE PRESENT. THIS EVALUATION INCLUDES EXAMINATION OF A CELL A BLOCK. PE: GEN: NAD LUNGS: CTAB HEART: mildly tachycardic ABD: Nsoft, less distended NEURO/PSYCH: A & O 3 A/P: Alcoholic cirrhosis/hepatitis (LFTs favorable trend), ascites s/p paracentesis x 2 Macrocytic anemia (B12 ok), thrombocytopenia, coagulopathy Hyponatremia - better COVID negative -- DC per primary. On Aldactone 50mg QD. No alcohol. Can pursue outpt paracentesis - our office or PCP can arrange. Referral to transplant center. Justicifation of Admission Dx: Justifications for Admission: Justification of Admission Dx: Yes GHAZAL MCWILLIAMS Sep 04, 2021 09:42
--- NOTE | 2021-09-04 09:50 | NUR ---
Discharge Note: JUICE HUMPHRIES CARROLLTON Discharge instructions and discharge home medications reviewed with Patient and a copy given. All questions have been answered and understanding verbalized. The following instructions and handouts were given: information about follow up appointment, medications, activity, diet, alcohol abstinence. Discontinued lines and drains: IV line in right forearm removed, catheter tip intact. Patient discharged to home with self care with spouse, wheelchair used for mobility to discharge vehicle.
--- NOTE | 2021-09-04 10:19 | NUR ---
SW following. Discussed with RN, discharge order for home with self care. RN advised no SW needs.
--- NOTE | 2021-09-04 14:02 | DS ---
DATE OF DISCHARGE: 09/04/2021 HOSPITAL SUMMARY: A 40-year-old white male, new patient to us, was admitted with jaundice and evidence of severe liver disease based on severe alcohol abuse. Hemoglobin was 8.4 on admission, dropped to 6.4 and after transfusion was stable at 7.8. MCV high at 113. Platelets were low at 75,000. B12 was normal. Bilirubin was 9 with a direct fraction of 5.2 and transaminases were mildly elevated. Lipase is mildly elevated on admission, which came down to normal. Renal function is normal, but sodium was low at 124 on admission. At the time of discharge after IV saline his sodium was 131 with GFR of 67. Hepatitis A, B and C serology are all negative as well as COVID serology and ascites fluid had no growth and showed evidence of a few cells and protein was present as well. He was given IV saline for the hyponatremia. He had paracentesis twice for a total of 13 liters removed and is feeling better. Sodium was treated with IV saline and then the addition of Aldactone and is stable at this time and he is able to be followed as an outpatient. FINAL DIAGNOSES: Severe alcohol-induced liver disease with hyponatremia, anemia, thrombocytopenia, and hypoprothrombinemia all secondary to this. OPERATIONS AND PROCEDURES: Paracentesis x2. COMPLICATIONS: None. CONSULTATION: Dr. Teixeira and Interventional Radiology. DISPOSITION: Daily multivitamins, spironolactone 50 mg daily and will increase to 100 mg daily later. We will follow the CBC, serum sodium and liver function tests. He understands he has to have complete alcohol sobriety to have any chance of ____recovery. High-calorie diet with low sodium intake is encouraged and modest protein intake as well. Office followup with laboratory studies in [address] JAX/MARCIO DR: Caro TID: [id number]
== END 2021-09-04 09:50 | disposition home or self-care (01) | DRG 433 ==
LOC: ER 11:28 → 5 NORTH 13:40
PROVIDERS: ADMIT Family Medicine; ATTEND Family Medicine
PROC: 0W9G3ZZ Drainage of Peritoneal Cavity, Percutaneous Approach (ICD-10-PCS; 2021-08-30)
PROC: 0W9G3ZZ Drainage of Peritoneal Cavity, Percutaneous Approach (ICD-10-PCS; principal; 2021-09-03)
DX: K70.31 Alcoholic cirrhosis of liver with ascites (principal); D68.2 Hereditary deficiency of other clotting factors; E87.1 Hypo-osmolality and hyponatremia; J98.11 Atelectasis; N17.9 Acute kidney failure, unspecified; D69.6 Thrombocytopenia, unspecified; F10.10 Alcohol abuse, uncomplicated; F17.210 Nicotine dependence, cigarettes, uncomplicated; D53.9 Nutritional anemia, unspecified; K70.11 Alcoholic hepatitis with ascites; K82.8 Other specified diseases of gallbladder; N20.0 Calculus of kidney; Z20.822 Contact with and (suspected) exposure to COVID-19
CPT/HCPCS: 36415; 36430; 49083; 71045; 74176; 76705; 80048; 80053; 80076; 80329; 82140; 82150; 82248; 82607; 82945; 83540; 83550; 83615; 83690; 83880; 84157; 85007; 85025; 85027; 85610; 85730; 86705; 86709; 86803; 86850; 86900; 86901; 86920; 87040; 87075; 87340; 87426; 88112; 88305; 89050; 96374; G0480; J0696; J3411; J7030; J7042; J7060; P9016; P9046; U0003; U0005; 99291-25; G0378

== ENCOUNTER 2021-09-15 16:49 | Inpatient (IN) | payer OTHER ==
[~2021-09-15] VITALS: Ht 180.3 cm; Wt 61.4 kg
[~2021-09-15 16:49] MED LIST: IBUP-1027 PO
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
[2021-09-15 17:44] LABS: BASO # 0.1 x10^3/uL (0.0-0.2); BASO % 1 % (0-3); EOS # 0.3 x10^3/uL (0.0-0.7); EOS % 2 % (0-3); HEMOGLOBIN 8.3 g/dL (13.0-17.5); LYMPH # 2.9 x10^3/uL (1.0-4.8); LYMPH % 23 % (24-48); MEAN CORPUSCULAR HEMOGLOBIN 37 pg (25-35); MEAN CORPUSCULAR HGB CONC 33 g/dL (31-37); MEAN CORPUSCULAR VOLUME 111 fL (79-100); MONO # 1.2 x10^3/uL (0.0-1.1); MONO % 9 % (0-9); NEUT # 8.4 x10^3/uL (1.8-7.7); NEUT % 65 % (31-73); PLATELET COUNT 155 x10^3/uL (140-400); RED BLOOD COUNT 2.26 x10^6/uL (4.30-5.70); RED CELL DISTRIBUTION WIDTH 22.5 % (11.5-14.5); WHITE BLOOD COUNT 12.9 x10^3/uL (4.0-11.0)
[2021-09-15 17:52] LABS: CALCIUM 8.1 mg/dL (8.5-10.1); CREATININE 1.6 mg/dL (0.7-1.3); GFR 47.9
[2021-09-15 17:58] LABS: ALBUMIN 2.1 g/dL (3.4-5.0); ALBUMIN/GLOBULIN RATIO 0.4 (1.0-1.7); TOTAL BILIRUBIN 5.3 mg/dL (0.2-1.0); TOTAL PROTEIN 7.7 g/dL (6.4-8.2)
[2021-09-15] MEDS ORDERED: ONDANSETRON PF 4 MG/2 ML VIAL. IVP PRN (18:30)
[2021-09-15 18:42] LABS: ANISOCYTOSIS MOD; PLT ESTIMATE ADEQUATE (ADEQUATE)
[2021-09-15 18:44] LABS: POIKILOCYTOSIS SLIGHT; SCHISTOCYTES OCC; TARGET CELLS PRESENT
[2021-09-15] MEDS: fentaNYL PF VIAL 100 MCG/2 ML VIAL IVP PRN (19:04)
[2021-09-15] MEDS: LACTULOSE 20 GM/30 ML SOLUTION. PO SCH (19:34)
[2021-09-15 20:00] VITALS: BP 119/84
[2021-09-15 23:28] VITALS: BP 110/75
[2021-09-16] MEDS ORDERED: SPIR50TA4 PO (00:54)
[2021-09-16 01:13] LABS: PROTHROMBIN TIME PATIENT 19.8 SEC (11.7-14.0)
[2021-09-16 03:17] VITALS: BP 124/77
[2021-09-16 07:00] VITALS: BP 122/86
--- NOTE | 2021-09-16 09:17 | PDOC ---
Date of Service: DATE: 09/16/21 TIME: 09:08 Subjective: Subjective: Please see GI consult from 08/30/21 and following progress notes to 09/04. Alcoholic cirrhosis w/ ascites s/p paracentesis 08/30 and 09/03 - fluid studies ok. Recurrent abdominal distention/ascites last Thu - says difficulty scheduling outpt paracentesis w/ our office, PCP, and weather - so eventually came to ER. No alcohol for 17 days. On spironolcatone QD - not sure of dose (but believe was sent home w/ 50mg QD last time). Eating and stooling without issue. Following no salt diet at home. Previously discussed referral to transplant center per our notes - they are unaware of this. Objective: Vital Signs: Vital Signs Date Time Temp Pulse Resp B/P (MAP) Pulse Ox O2 Delivery O2 Flow Rate FiO2 09/16/21 07:00 98.0 109 18 122/86 (98) 93 Room Air 98.0 Labs: Laboratory Tests Test 09/15/21 17:28 09/15/21 17:37 09/16/21 00:48 Sodium Level 134 mmol/L Potassium Level 4.0 mmol/L Chloride Level 100 mmol/L Carbon Dioxide Level 19 mmol/L Anion Gap 15 Blood Urea Nitrogen 16 mg/dL Creatinine 1.6 mg/dL Estimated GFR (Cockcroft-Gault) 47.9 BUN/Creatinine Ratio 10 Glucose Level 131 mg/dL Calcium Level 8.1 mg/dL Total Bilirubin 5.3 mg/dL Aspartate Amino Transf (AST/SGOT) 86 U/L Alanine Aminotransferase (ALT/SGPT) 46 U/L Alkaline Phosphatase 136 U/L Ammonia 76 mcmol/L Total Protein 7.7 g/dL Albumin 2.1 g/dL Albumin/Globulin Ratio 0.4 White Blood Count 12.9 x10^3/uL Red Blood Count 2.26 x10^6/uL Hemoglobin 8.3 g/dL Hematocrit 25.0 % Mean Corpuscular Volume 111 fL Mean Corpuscular Hemoglobin 37 pg Mean Corpuscular Hemoglobin Concent 33 g/dL Red Cell Distribution Width 22.5 % Platelet Count 155 x10^3/uL Neutrophils (%) (Auto) 65 % Lymphocytes (%) (Auto) 23 % Monocytes (%) (Auto) 9 % Eosinophils (%) (Auto) 2 % Basophils (%) (Auto) 1 % Neutrophils # (Auto) 8.4 x10^3/uL Lymphocytes # (Auto) 2.9 x10^3/uL Monocytes # (Auto) 1.2 x10^3/uL Eosinophils # (Auto) 0.3 x10^3/uL Basophils # (Auto) 0.1 x10^3/uL Platelet Estimate Adequate Poikilocytosis Slight Anisocytosis Mod Macrocytosis Mod Target Cells Present Schistocytes Occ Prothrombin Time 19.8 SEC Prothromb Time International Ratio 1.7 Activated Partial Thromboplast Time 42 SEC PE: GEN: NAD, eating breakfast, significant other present LUNGS: diminished, room air HEART: mildly tachycardic ABD: distended, tight, uncomfortable NEURO/PSYCH: A & O 3 A/P: Alcoholic cirrhosis/hepatitis (LFTs favorable trend), ascites s/p previous paracentesis, now w/ recurrent ascites - sober since last admission Leukotyosis, macrocytic anemia (B12 ok last admission), coagulopathy (INR 1.7 - ok for paracentesis), RADHA (Cr 1.6), elevated LFTs (bili better than last time, viral Hep panel negative last time) CRC screen - average risk -- Will ask for paracentesis if not already requested by ER. Home meds per primary. Will add lactulose for 3-4 stools daily. Continue salt restriction and abstinence. MELD 26. Can arrange outpt paracentesis in future. Again discussed referral to transplant center which our office can facilitate. Justicifation of Admission Dx: Justifications for Admission: Justification of Admission Dx: Yes GHAZAL MCWILLIAMS Sep 16, 2021 09:17
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
--- NOTE | 2021-09-16 10:32 | NUR ---
SW following. Discussed with RN, pt from home, room air, regular diet. GI following. RN advised no SW needs at this time. SW will continue to follow.
[2021-09-16] MEDS: LACTULOSE 20 GM/30 ML SOLUTION. PO SCH ×3 (10:38→21:23)
[2021-09-16] MEDS: fentaNYL PF VIAL 100 MCG/2 ML VIAL IVP PRN (10:42)
[2021-09-16 11:00] VITALS: BP 116/80
[2021-09-16 15:00] VITALS: BP 110/79
[2021-09-16 19:00] VITALS: BP 118/83
[2021-09-17] VITALS (10 sets, daily range): BP systolic 96–122; BP diastolic 57–83
[2021-09-17 08:05] LABS: CREATININE 1.6 mg/dL (0.7-1.3); GFR 47.9; POTASSIUM 4.3 mmol/L (3.5-5.1)
[2021-09-17] MEDS: SPIRONOLACTONE 25 MG TABLET PO SCH (09:00)
[2021-09-17] MEDS: LACTULOSE 20 GM/30 ML SOLUTION. PO SCH ×3 (09:00→20:02)
[2021-09-17] MEDS ORDERED: MORPHINE SULFATE 2 MG/ML INJ. IVP PRN (09:00)
--- NOTE | 2021-09-17 09:25 | NUR ---
Page to Dr Sood, verbal order to restart home meds and verbal order for morphine 2mg q2 PRN. orders placed.
--- NOTE | 2021-09-17 10:13 | PDOC ---
Date of Service: DATE: 09/17/21 TIME: 10:07 Subjective: Subjective: Still waiting on paracentesis. Doesn't want morphine for abdominal pain - wants ibuprofen. Girlfriend says plans to set up recurring appointments for outpt paracentesis every week or so. Objective: Objective: Spironolactone restarted per primary. Pt refused lactulose. Vital Signs: Vital Signs Date Time Temp Pulse Resp B/P (MAP) Pulse Ox O2 Delivery O2 Flow Rate FiO2 09/17/21 07:00 99.0 105 18 119/82 (94) 91 Room Air 99.0 Labs: Laboratory Tests Test 09/16/21 10:48 09/17/21 07:08 SARS-CoV-2 Antigen (Rapid) Negative Sodium Level 133 mmol/L Potassium Level 4.3 mmol/L Chloride Level 102 mmol/L Carbon Dioxide Level 20 mmol/L Anion Gap 11 Blood Urea Nitrogen 16 mg/dL Creatinine 1.6 mg/dL Estimated GFR (Cockcroft-Gault) 47.9 Glucose Level 102 mg/dL Calcium Level 8.0 mg/dL PE: GEN: NAD - breakfast about 50% consumed, significant other present HEART: mildly tachycardic ABD: distended EXTREMITY: No edema NEURO/PSYCH: A & O 3 A/P: Alcoholic cirrhosis, recurrent ascites Rapid COVID negative -- Awaiting paracentesis. Home diuretic restarted per primary - Cr stable 1.6. Ideally would adjust lactulose for 3-4 stools daily. Salt avoidance, continue sobriety, follow-up w/ [facility]. Justicifation of Admission Dx: Justifications for Admission: Justification of Admission Dx: Yes GHAZAL MCWILLIAMS Sep 17, 2021 10:13
[2021-09-17] MEDS ORDERED: ALBUMIN HUMAN 25% 100 ML IV ONE ×2 (11:00→11:15)
--- NOTE | 2021-09-17 15:46 | RAD ---
Ultrasound-guided paracentesis. 09/17/2021 3:43 PM Indication: Reason: recurrent ascites, total fluid removed: 8 liters / Spl. Instructions: / History : Discussion: The risks and benefits of the procedure including but not limited to bleeding, hypotensio n, and infection were discussed the patient. Informed consent was obtained. Ultrasound evaluation was performed demonstrating ascites, with the largest pocket and the right lower quadrant. The right low er quadrant was prepped and draped in sterile fashion. 1% lidocaine without epinephrine was administe red for local anesthesia. Under direct ultrasound guidance a 5 Turkish Yueh needle was advanced into t he peritoneal space. Serous fluid was aspirated. The catheter was connected to suction and approximat lester 8 liters of fluid was removed. The catheter was then removed and manual pressure was held to ach ieve hemostasis. A sterile dressing was applied. Impression: Ultrasound-guided paracentesis with removal of 8 L of ascites Electronically signed by: Landry Mackenzie MD (09/17/2021 3:43 PM) [id number]
[2021-09-17] MEDS ORDERED: IBUPROFEN 400 MG TABLET. PO PRN (16:30)
--- NOTE | 2021-09-17 16:34 | NUR ---
verbal order received for ibuprofen 400mg q6hr as patient does not want to take morphine to manage his pain.
--- NOTE | 2021-09-18 03:40 | PN ---
DATE: 09/17/2021 DAILY PROGRESS NOTE LOCATION: He is in room 578. SUBJECTIVE: This 40-year-old male remains hospitalized with abdominal pain, likely due to ascites. He states they were not able to do the paracentesis yesterday and it is planned for some time today. OBJECTIVE: VITAL SIGNS: Stable. He is afebrile. GENERAL: He is awake and alert. CHEST: Clear to auscultation. HEART: Regular rate and rhythm. ABDOMEN: Protuberant. EXTREMITIES: Without cyanosis, clubbing or significant edema. ASSESSMENT: 1. Alcoholic cirrhosis with recurrent ascites, symptomatic. 2. COVID negative. PLAN: Await paracentesis. GI is going to set him up with Hepatology for possible hepatic transplant in the future ____. ELMA/GAEL DR: PORSCHE/alexa TID: [id number]
[2021-09-18 07:35] VITALS: BP 101/67
[2021-09-18 08:15] LABS: CALCIUM 7.5 mg/dL (8.5-10.1); CREATININE 1.4 mg/dL (0.7-1.3); GFR 55.8
[2021-09-18] MEDS: LACTULOSE 20 GM/30 ML SOLUTION. PO SCH (09:00)
[2021-09-18] MEDS: SPIRONOLACTONE 25 MG TABLET PO SCH (09:04)
--- NOTE | 2021-09-18 09:40 | PDOC ---
Date of Service: DATE: 09/18/21 TIME: 09:36 Subjective: Subjective: Just waiting to go home. Feels better. Girlfriend asks if he should take milk thistle. Objective: Objective: Not taking lactulose. D/w nurse - pt reports Dr. Sood said he could go home, awaiting orders. Vital Signs: Vital Signs Date Time Temp Pulse Resp B/P (MAP) Pulse Ox O2 Delivery O2 Flow Rate FiO2 09/18/21 07:35 98.1 103 18 101/67 (78) 98 Room Air 98.1 Labs: Laboratory Tests Test 09/18/21 07:20 Sodium Level 129 mmol/L Potassium Level 4.0 mmol/L Chloride Level 98 mmol/L Carbon Dioxide Level 21 mmol/L Anion Gap 10 Blood Urea Nitrogen 12 mg/dL Creatinine 1.4 mg/dL Estimated GFR (Cockcroft-Gault) 55.8 Glucose Level 91 mg/dL Calcium Level 7.5 mg/dL PE: GEN: NAD - up in chair LUNGS: CTAB HEART: RRR ABD: soft, much less distended NEURO/PSYCH: A & O 3, flat A/P: Alcoholic cirrhosis, recurrent ascites s/p paracentesis RADHA (better), hyponatremia (worse) -- Seems like plans to discharge. They have plans to set up outpt paracentesis. Sodium noted, on spironolactone - encouraged follow-up w/ PCP next week for lab recheck. As discussed, our office will send referral to Hepatology. Continue sobriety. Justicifation of Admission Dx: Justifications for Admission: Justification of Admission Dx: Yes GHAZAL MCWILLIAMS Sep 18, 2021 09:40
--- NOTE | 2021-09-18 12:19 | NUR ---
SW following. Discussed with RN, discharge order for home. RN advised no SW needs.
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
== END 2021-09-18 11:28 | disposition home or self-care (01) | DRG 433 ==
LOC: ER 16:49 → 5 SOUTH 19:11
PROVIDERS: ADMIT Family Medicine; ATTEND Family Medicine
PROC: 0W9G3ZZ Drainage of Peritoneal Cavity, Percutaneous Approach (ICD-10-PCS; principal; 2021-09-17)
DX: K70.11 Alcoholic hepatitis with ascites (principal); E87.1 Hypo-osmolality and hyponatremia; N17.9 Acute kidney failure, unspecified; Z79.01 Long term (current) use of anticoagulants; F17.200 Nicotine dependence, unspecified, uncomplicated; K70.31 Alcoholic cirrhosis of liver with ascites; Z20.822 Contact with and (suspected) exposure to COVID-19; F10.20 Alcohol dependence, uncomplicated
CPT/HCPCS: 36415; 49083; 80048; 80053; 82140; 85025; 85610; 85730; 87426; 96374; J2405; J3010; P9046; 99285-25; G0378

== ENCOUNTER 2021-09-25 08:20 | Outpatient (CLI) | payer OTHER ==
[2021-09-25] VITALS (9 sets, daily range): BP systolic 117–136; BP diastolic 70–89
[~2021-09-25] VITALS: Ht 180.3 cm; Wt 59.0 kg
[~2021-09-25 08:20] MED LIST changes: +SPIR50TA4 PO
[2021-09-25] MEDS ORDERED: MULT-496 PO (08:48)
[2021-09-25] MEDS ORDERED: FURO20TA3 PO (08:48)
[2021-09-25] MEDS ORDERED: ALPR0.5T PO (08:48)
[2021-09-25] MEDS ORDERED: FLUO20CA22 PO (08:48)
[2021-09-25] MEDS ORDERED: ALBUMIN HUMAN 25% 100 ML IV ONE (10:15)
--- NOTE | 2021-09-25 10:34 | RAD ---
Ultrasound-guided paracentesis. 09/25/2021 10:31 AM Indication: Reason: ASCITES, TOTAL FLUID REMOVED 7.5 LITERS Discussion: The risks and benefits of the procedure including but not limited to bleeding, hypotensio n, and infection were discussed the patient. Informed consent was obtained. Ultrasound evaluation was performed demonstrating ascites, with the largest pocket and the right lower quadrant. The right low er quadrant was prepped and draped in sterile fashion. 1% lidocaine without epinephrine was administe red for local anesthesia. Under direct ultrasound guidance a 5 Mauritanian Yueh needle was advanced into t he peritoneal space. Serous fluid was aspirated. The catheter was connected to suction and approximat lester 7.5 liters of fluid was removed. The catheter was then removed and manual pressure was held to a chieve hemostasis. A sterile dressing was applied. Impression: Ultrasound-guided paracentesis with removal of 7.5 L of ascites Electronically signed by: Landry Mackenzie MD (09/25/2021 10:32 AM) [id number]
[2021-09-25] MEDS: ALBUMIN HUMAN 25% 100 ML IV ONE ×2 (10:46→11:10)
--- NOTE | 2021-09-25 11:22 | NUR ---
Discharge Note: WARREN HUMPHRIES Discharge instructions and discharge home medications reviewed with Patient and a copy given. All questions have been answered and understanding verbalized. The following instructions and handouts were given: paracentesis Discontinued lines and drains: Peripheral IV intact. Patient discharged to Home or Self Care withSignificant Othervia Wheelchair
== END 2021-09-25 11:26 | disposition home or self-care (01) ==
LOC: INTRAD 08:20
PROVIDERS: ATTEND Internal Medicine Gastroenterology
DX: K70.31 Alcoholic cirrhosis of liver with ascites (principal); F10.20 Alcohol dependence, uncomplicated; Z79.899 Other long term (current) drug therapy; Z72.89 Other problems related to lifestyle; Z87.442 Personal history of urinary calculi; Z79.01 Long term (current) use of anticoagulants
CPT/HCPCS: 49083; P9046

== ENCOUNTER 2021-10-01 08:31 | Outpatient (CLI) | payer OTHER ==
[~2021-10-01 08:31] MED LIST changes: +ALPR0.5T PO; +FLUO20CA22 PO; +FURO20TA3 PO; +MULT-496 PO
[2021-10-01 08:46] VITALS: BP 110/72
[2021-10-01 09:05] VITALS: BP 101/64
--- NOTE | 2021-10-01 09:27 | NUR ---
Patient taken over to Interventional Radiology and ultrasound showed minimal fluid. Patient was okay with waiting for another week since not much fluid was available to drain. Patient and his significant other were taken to Registration in order to get refund of copay and this nurse assisted patient to vehicle to leave. Appointment scheduled for next Thursday.
--- NOTE | 2021-10-01 09:33 | RAD ---
10/01/2021 Discussion: Limited ultrasound was performed for evaluation of ascites. Only scant ascites was seen, inadequate for paracentesis. No procedure was therefore performed. Electronically signed by: Landry Mackenzie MD (10/01/2021 9:30 AM) [id number]
== END 2021-10-01 09:31 | disposition home or self-care (01) ==
LOC: INTRAD 08:31
PROVIDERS: ATTEND Internal Medicine Gastroenterology
DX: R18.8 Other ascites (principal); F17.210 Nicotine dependence, cigarettes, uncomplicated; Z79.899 Other long term (current) drug therapy; Z98.890 Other specified postprocedural states; Z72.89 Other problems related to lifestyle
CPT/HCPCS: 49083

== ENCOUNTER 2021-11-06 18:18 | Emergency (ER) | payer OTHER ==
[~2021-11-06] VITALS: Ht 180.3 cm; Wt 51.8 kg
[2021-11-06 18:25] VITALS: BP 109/64
--- NOTE | 2021-11-06 18:53 | PHYS DOC ---
Past Medical History Past Medical History: Alcoholism, Liver Disease Additional Past Medical Histor: LIVER FAILURE, ETOH ABUSE Past Surgical History: No Surgical History Smoking Status: Current Every Day Smoker Alcohol Use: Sober General Adult EDM: Chief Complaint: ABNORMAL LABS HPI: HPI: Patient is a 41 year old male patient with history of alcohol induced liver failure presenting today to be evaluated for anemia. Patient states he had lab work done at the doctor's office and he was noted to be anemic with hemoglobin around 6.5. Patient denies any alcohol use. Denies any nausea, vomiting. Denies any bleeding. Review of Systems: Review of Systems: Constitutional: Reports anemia. Denies fever or chills. [] Eyes: Denies change in visual acuity. [] HENT: Denies nasal congestion or sore throat. [] Respiratory: Denies cough or shortness of breath. [] Cardiovascular: Denies chest pain or edema. [] GI: Denies abdominal pain, nausea, vomiting, bloody stools or diarrhea. [] : Denies dysuria. [] Musculoskeletal: Denies back pain or joint pain. [] Integument: Denies rash. [] Neurologic: Denies headache, focal weakness or sensory changes. Psychiatric: Denies depression or anxiety. [] Heart Score: C/O Chest Pain: N/A Risk Factors: Risk Factors: DM, Current or recent (<one month) smoker, HTN, HLP, family history of CAD, obesity. Risk Scores: Score 0 - 3: 2.5% MACE over next 6 weeks - Discharge Home Score 4 - 6: 20.3% MACE over next 6 weeks - Admit for Clinical Observation Score 7 - 10: 72.7% MACE over next 6 weeks - Early Invasive Strategies Allergies: Allergies: Allergies Coded Allergies Type Severity Reaction Last Updated Verified No Known Drug Allergies 08/29/21 No Physical Exam: PE: Constitutional: Thin appearing patient, no acute distress, non-toxic appearance. [] HENT: Normocephalic, atraumatic, bilateral external ears normal, oropharynx moist, no oral exudates, nose normal. [] Eyes: PERRLA, EOMI, scleral icterus bilaterally, no discharge. [] Neck: Normal range of motion, no tenderness, supple, no stridor. [] Cardiovascular:Heart rate regular rhythm, no murmur [] Lungs & Thorax: Bilateral breath sounds clear to auscultation [] Abdomen: Bowel sounds normal, soft, no tenderness, no masses, no pulsatile masses. [] Skin: Jaundiced appearing skin. Warm, dry, no erythema, no rash. [] Back: No tenderness, no CVA tenderness. [] Extremities: No tenderness, no cyanosis, no clubbing, ROM intact, no edema. [] Neurologic: Alert and oriented X 3, normal motor function, normal sensory function, no focal deficits noted. [] Psychologic: Affect normal, judgement normal, mood normal. [] Current Patient Data: Vital Signs: Vital Signs Date Time Temp Pulse Resp B/P (MAP) Pulse Ox O2 Delivery O2 Flow Rate FiO2 11/06/21 18:25 97.7 95 16 109/64 (79) 98 Room Air 97.7 EKG: EKG: [] Radiology/Procedures: Radiology/Procedures: [] Course & Med Decision Making: Course & Med Decision Making Pertinent Labs and Imaging studies reviewed. (See chart for details) This a 41-year-old male patient with history of liver cirrhosis presenting today to be evaluated for anemia. Hemoglobin was apparently 6.5 at the doctor's office. CBC with a normal WBC, hemoglobin 7.7 with hematocrit of 23.2. BUN 29, creatinine 1.7, this is around patient's baseline. I spoke to Dr. Boyce on-call for Dr. Coughlin. He stated patient can be discharged to home and follow-up in clinic [facility] Disclaimer: Anton Disclaimer: This electronic medical record was generated, in whole or in part, using a voice recognition dictation system. Departure Departure Impression: Primary Impression: Anemia Qualified Codes: D64.9 - Anemia, unspecified Additional Impressions: Renal insufficiency Decompensated liver disease Disposition: HOME / SELF CARE / HOMELESS Condition: STABLE Referrals: VERÓNICA COUGHLIN MD (PCP) Call his office tomorrow and set up a follow-up appointment Patient Instructions: Iron Deficiency Anemia Additional Instructions: Your hemoglobin in the emergency room is 7.7 with hematocrit of 23.2. Please contact your primary care doctor's office tomorrow morning and set up a follow- up appointment in the clinic. DARINEL DRAPER APRN Nov 06, 2021 18:53
[2021-11-06 18:54] LABS: BASO # 0.1 x10^3/uL (0.0-0.2); BASO % 1 % (0-3); EOS # 0.1 x10^3/uL (0.0-0.7); EOS % 2 % (0-3); HEMATOCRIT 23.2 % (39.0-53.0); HEMOGLOBIN 7.7 g/dL (13.0-17.5); LYMPH # 1.8 x10^3/uL (1.0-4.8); LYMPH % 30 % (24-48); MEAN CORPUSCULAR HEMOGLOBIN 34 pg (25-35); MEAN CORPUSCULAR HGB CONC 34 g/dL (31-37); MEAN CORPUSCULAR VOLUME 101 fL (79-100); MONO # 0.6 x10^3/uL (0.0-1.1); MONO % 10 % (0-9); NEUT # 3.4 x10^3/uL (1.8-7.7); NEUT % 57 % (31-73); PLATELET COUNT 120 x10^3/uL (140-400); RED BLOOD COUNT 2.29 x10^6/uL (4.30-5.70); RED CELL DISTRIBUTION WIDTH 16.8 % (11.5-14.5)
[2021-11-06 19:03] LABS: CALCIUM 9.6 mg/dL (8.5-10.1); CREATININE 1.7 mg/dL (0.7-1.3); GFR 44.4
[2021-11-06 19:09] LABS: ALBUMIN 2.7 g/dL (3.4-5.0); ALBUMIN/GLOBULIN RATIO 0.5 (1.0-1.7); TOTAL BILIRUBIN 4.2 mg/dL (0.2-1.0); TOTAL PROTEIN 7.8 g/dL (6.4-8.2)
== END 2021-11-06 19:34 | disposition home or self-care (01) ==
LOC: ER 18:18
DX: D64.9 Anemia, unspecified (principal); N28.9 Disorder of kidney and ureter, unspecified; K76.89 Other specified diseases of liver; F17.200 Nicotine dependence, unspecified, uncomplicated
CPT/HCPCS: 36415; 80053; 85025; 99283; G0480